=== PATIENT | male | born 1975 | race Asian ===

== ENCOUNTER 2018-11-15 18:47 | Emergency (ER) | payer SELFPAY ==
[~2018-11-15] VITALS: Ht 165.1 cm; Wt 61.4 kg
[2018-11-15] MEDS ORDERED: DIVA500T52 PO (19:46)
[2018-11-15] MEDS ORDERED: PROP10TA73 PO (19:46)
[2018-11-15] MEDS ORDERED: SODIUM CHLORIDE 0.9% 1,850 ML IV ONE (19:48)
[2018-11-15 20:18] LABS: BASOPHILS % (AUTO) 0.4 % (0.0-2.0); EOSINOPHILS % (AUTO) 1.6 % (1.0-6.0); HEMATOCRIT 39.2 % (41-53); HEMOGLOBIN 13.1 g/dL (13.5-17.5); LYMPHOCYTES # (AUTO) 2.6 K/uL (1.0-4.8); MEAN CORPUSCULAR HEMOGLOBIN 28.9 pg (26.0-34.0); MEAN CORPUSCULAR HGB CONC 33.4 G/dL (31.0-37.0); MEAN CORPUSCULAR VOLUME 87 fL (80-100); MONOCYTES # (AUTO) 0.6 K/uL (0.1-1.0); MONOCYTES % (AUTO) 6.7 % (2.0-9.0); NEUTROPHILS # (AUTO) 5.3 K/uL (1.8-7.7); NEUTROPHILS % (AUTO) 61.3 % (40.0-70.0); PLATELET COUNT (AUTO) 268 K/uL (150-450); RED BLOOD CELL COUNT(AUTO) 4.53 MIL/uL (4.50-5.90); RED CELL DISTRIBUTION WIDTH 13.3 % (11.5-14.5)
[2018-11-15 20:29] LABS: ANION GAP 9 mmol/L (8-16); CALCIUM, TOTAL 8.9 mg/dL (8.8-10.5); CARBON DIOXIDE 26 mmol/L (22-29); CHLORIDE 102 mmol/L (98-107); CREATININE 1.22 mg/dL (0.60-1.30); GLOMERULAR FILTR. RATE CALC > 60 mL/min (>60); GLUCOSE,RANDOM 202 mg/dL (70-110); INR 0.9 (0.9-1.1); PROTHROMBIN TIME 9.3 SEC (9.4-11.6); SODIUM SERUM 137 mmol/L (136-145); UREA NITROGEN, BLOOD 20 mg/dL (7-18)
[2018-11-15 20:30] VITALS: BP 149/87
[2018-11-15 20:34] LABS: ALANINE AMINOTRANSFERASE 16 U/L (12-78); ALBUMIN 3.7 g/dL (3.4-5.0); ALKALINE PHOSPHATASE 161 U/L (46-116); ASPARTATE AMINOTRANSFERASE 21 U/L (15-37); BILIRUBIN,TOTAL 0.3 mg/dL (0.1-1.0); TOTAL PROTEIN, SERUM 7.3 g/dL (6.4-8.2)
[2018-11-15 20:37] LABS: LACTIC ACID 1.8 mmol/L (0.4-2.0)
[2018-11-15] MEDS ORDERED: KETOROLAC TROMETHAMINE 30 MG/ML VIAL IVP ONE (20:45)
== END 2018-11-15 22:43 | disposition left against medical advice (07) ==
LOC: EMS 18:47
DX: S82.301G Unspecified fracture of lower end of right tibia, subsequent encounter for closed fracture with delayed healing (principal); R74.8 Abnormal levels of other serum enzymes; F12.10 Cannabis abuse, uncomplicated; F41.9 Anxiety disorder, unspecified; F31.9 Bipolar disorder, unspecified; F17.210 Nicotine dependence, cigarettes, uncomplicated; Z88.8 Allergy status to other drugs, medicaments and biological substances; W01.0XXD Fall on same level from slipping, tripping and stumbling without subsequent striking against object, subsequent encounter
CPT/HCPCS: 36415; 71045; 73590; 73610; 80053; 80164; 83605; 85025; 85610; 87040; 93005; 99284; G0480; J7030

== ENCOUNTER 2023-12-18 17:02 | Emergency (ER) | payer SELFPAY ==
[~2023-12-18] VITALS: Ht 175.3 cm; Wt 68.2 kg
[~2023-12-18 17:02] MED LIST: DIVA-153 PO; PROP10TA73 PO
[2023-12-18 17:04] VITALS: BP 139/88; PULSE 108; RESP 18; TEMP 98.2; O2SAT 99
[2023-12-18] MEDS ORDERED: BICT1TAB PO (17:10)
== END 2023-12-18 17:53 | disposition left against medical advice (07) ==
LOC: EMS 17:02
DX: R06.02 Shortness of breath (principal); Z53.21 Procedure and treatment not carried out due to patient leaving prior to being seen by health care provider

== ENCOUNTER 2024-01-09 18:58 | Emergency (ER) | payer SELFPAY ==
[~2024-01-09] VITALS: Ht 165.1 cm; Wt 52.3 kg
[~2024-01-09 18:58] MED LIST changes: +BICT1TAB PO
[2024-01-09 19:13] VITALS: BP 158/90; PULSE 94; RESP 18; TEMP 98.3; O2SAT 100
[2024-01-09] MEDS ORDERED: LOSA-381 PO (19:13)
[2024-01-09] MEDS ORDERED: PROP40TA7 PO (19:13)
== END 2024-01-09 19:13 | disposition left against medical advice (07) ==
LOC: EMS 18:58
DX: M79.641 Pain in right hand (principal); Z53.21 Procedure and treatment not carried out due to patient leaving prior to being seen by health care provider
CPT/HCPCS: 99283

== ENCOUNTER 2024-09-09 16:07 | Inpatient (IN) | payer OTHER ==
[~2024-09-09] VITALS: Ht 165.1 cm; Wt 57.0 kg
[~2024-09-09 16:07] MED LIST changes: -DIVA-153 PO; +LOSA-381 PO; -PROP10TA73 PO; +PROP40TA7 PO
[2024-09-09 17:09] LABS: APPEARANCE,URINE CLEAR (CLEAR); GLUCOSE, URINE (UA) >=1000 mg/dL (NEGATIVE); LEUKOCYTE ESTERASE ,URINE NEGATIVE (NEGATIVE); NITRATE,URINE NEGATIVE (NEGATIVE); OCCULT BLOOD,URINE NEGATIVE (NEGATIVE); SPECIFIC GRAVITIY, URINE 1.039 (1.003-1.030)
[2024-09-09 17:11] LABS: PLATELET COUNT (AUTO) 331 K/uL (150-450); RED BLOOD CELL COUNT(AUTO) 6.14 MIL/uL (4.50-5.90); RED CELL DISTRIBUTION WIDTH 13.6 % (11.5-14.5); WHITE BLOOD COUNT (AUTO) 9.8 K/uL (4.5-11.0)
[2024-09-09 17:17] LABS: CALCIUM, TOTAL 9.4 mg/dL (8.8-10.5); CREATININE 1.20 mg/dL (0.60-1.30); GLOMERULAR FILTR. RATE CALC > 60 mL/min (>60); SODIUM SERUM 136 mmol/L (136-145); UREA NITROGEN, BLOOD 18 mg/dL (7-18)
[2024-09-09 17:19] LABS: GLUCOSE,RANDOM 408 mg/dL (70-110)
[2024-09-09 17:24] LABS: SQUAMOUS EPITHELIAL CELL,UR Few /LPF (None Seen)
[2024-09-09] MEDS: SODIUM CHLORIDE 0.9% 1,000 ML IV ONE ×2 (18:54→22:47)
[2024-09-09] MEDS: INSULIN REGULAR, HUMAN 100 UNITS/ML IVP ONE (18:58)
[2024-09-09] MEDS: ONDANSETRON HCL 4 MG/2 ML VIAL IVP ONE (18:59)
[2024-09-09] MEDS: MORPHINE SULFATE 4 MG/ML SYRINGE IVP ONE (18:59)
[2024-09-09 19:06] LABS: GLUCOMETER DEV NAME(LOC) ERT.7; GLUCOSE,POINT OF CARE 343 MG/DL (70-110)
[2024-09-09] MEDS ORDERED: ONDANSETRON HCL 4 MG/2 ML VIAL IVP PRN (21:45)
[2024-09-09] MEDS ORDERED: ACETAMINOPHEN 325 MG TABLET PO PRN (21:45)
[2024-09-09] MEDS ORDERED: DEXTROSE 50%-WATER 25 GM/50 ML SYRINGE IVP PRN (21:45)
[2024-09-09] MEDS: NICOTINE 7 MG/24 HOUR PATCH TD ONE (22:47)
[2024-09-10 00:31] VITALS: BP 119/84; PULSE 105; RESP 20; TEMP 97.5; O2SAT 97
[2024-09-10] MEDS: MORPHINE SULFATE 2 MG/ML SYRINGE IVP PRN (01:58)
[2024-09-10 04:25] VITALS: BP 118/77; PULSE 85; RESP 18; TEMP 98.1; O2SAT 98
[2024-09-10] MEDS: INSULIN LISPRO 100 UNITS/ML SQ PRN (05:58)
[2024-09-10] MEDS: PANTOPRAZOLE SODIUM 40 MG/VIAL IVP SCH (08:06)
[2024-09-10] MEDS: DOCUSATE SODIUM 100 MG CAPSULE PO SCH (08:08)
[2024-09-10 08:34] VITALS: BP 133/85; PULSE 99; RESP 20; TEMP 97.3; O2SAT 99
[2024-09-10 08:41] LABS: GLUCOMETER DEV NAME(LOC) 6S.2; GLUCOSE,POINT OF CARE 227 MG/DL (70-110)
[2024-09-10] MEDS ORDERED: DIATRIZOATE MEGLU/SOD 660/100 MG/ML 120 ML BOTTLE ONE (10:30)
[2024-09-10 15:58] VITALS: BP 129/84; PULSE 115; RESP 20; TEMP 98.2; O2SAT 98
[2024-09-10] MEDS: SODIUM CHLORIDE 0.9% 1,000 ML IV ONE (16:29)
[2024-09-10 16:42] VITALS: BP 138/85
[2024-09-10 17:41] LABS: GLUCOMETER DEV NAME(LOC) 6N.2C; GLUCOSE,POINT OF CARE 184 MG/DL (70-110)
[2024-09-10 18:36] LABS: GLUCOMETER DEV NAME(LOC) 6N.2C; GLUCOSE,POINT OF CARE 138 MG/DL (70-110)
[2024-09-10 20:36] VITALS: BP 125/84; PULSE 95; RESP 20; TEMP 98.2; O2SAT 98
[2024-09-11 02:46] LABS: GLUCOMETER DEV NAME(LOC) 6N.2C; GLUCOSE,POINT OF CARE 143 MG/DL (70-110)
[2024-09-11 03:05] VITALS: BP 121/76; PULSE 94; RESP 16; TEMP 98.1; O2SAT 96
[2024-09-11 08:00] VITALS: BP 119/84; PULSE 99; RESP 18; TEMP 97.3
[2024-09-11 09:38] VITALS: BP 103/62; PULSE 80; RESP 18; TEMP 97.7; O2SAT 98
[2024-09-11 20:15] LABS: GLUCOMETER DEV NAME(LOC) 6N.2C; GLUCOSE,POINT OF CARE 245 MG/DL (70-110)
[2024-09-11 20:20] LABS: GLUCOMETER DEV NAME(LOC) 6S.2; GLUCOSE,POINT OF CARE 176 MG/DL (70-110)
== END 2024-09-11 13:05 | disposition home or self-care (01) | DRG 390 ==
LOC: EMS 16:07 → EDH 21:33 → 6S 09-10 00:21
PROVIDERS: ADMIT Internal Medicine; ATTEND Internal Medicine
DX: K56.600 Partial intestinal obstruction, unspecified as to cause (principal); E11.65 Type 2 diabetes mellitus with hyperglycemia; K40.90 Unilateral inguinal hernia, without obstruction or gangrene, not specified as recurrent; F41.9 Anxiety disorder, unspecified; F17.210 Nicotine dependence, cigarettes, uncomplicated; N20.0 Calculus of kidney; F31.9 Bipolar disorder, unspecified; Z79.4 Long term (current) use of insulin; Q55.22 Retractile testis; Z83.3 Family history of diabetes mellitus; Z91.09 Other allergy status, other than to drugs and biological substances
CPT/HCPCS: 74176; 74250; 76870; 80048; 81001; 81003; 82962; 85025; 96361; 96374; 96375; 99285; G0378; J1815; J2270; J2405; J2470; J7030; 36415-L1; 36415-TC